=== PATIENT | male | born 1960 ===

== ENCOUNTER 2018-10-10 12:40 | Day surgery (SDC) | payer BC ==
[~2018-10-10] VITALS: Ht 190.5 cm; Wt 90.7 kg
[~2018-10-10 12:40] MED LIST: ESOM20 PO; NAPR220 PO
--- NOTE | 2018-10-10 13:26 | NUR ---
Ambulatory in Day Surgery. History, Chart, Medications and Allergies reviewed before start of procedure. Lungs clear T/O to Auscultation. Patient confirms NPO status and agrees with scheduled surgery. Pre-Op teaching done. Pt verbalizes understanding. Patient States Post-Procedure ride home has been arranged.
--- NOTE | 2018-10-10 13:51 | NUR ---
10/10/18 1351 Joseph Raphael History, Chart, Medications and Allergies reviewed before start of procedure.MONITOR INTACT WITH CONTINUOUS PULSE OXIMETRY AND INTERMITTENT BP.3-LEAD EKG REVIEWED WITH PHYSICIAN PRIOR TO START OF PROCEDURE.O2 VIA N/C INTACT THROUGHOUT SEDATION/PROCEDURE. Patient confirms NPO status and agrees with scheduled surgery.PATIENT DETERMINED TO BE ASA APPROPRIATE FOR PROPOFOL SEDATION PRIOR TO START OF PROCEDURE BY DR. SUTHERLAND.
== END 2018-10-10 22:42 | disposition home or self-care (01) ==
LOC: ORSCMMR 12:40 → ORD 13:30 → ORSCMMR 13:30
PROVIDERS: Student in an Organized Health Care Education/Training Program
PROC: 0DB88ZX Excision of Small Intestine, Via Natural or Artificial Opening Endoscopic, Diagnostic (ICD-10-PCS; principal; 2018-10-10 13:30)
PROC: 0DB58ZX Excision of Esophagus, Via Natural or Artificial Opening Endoscopic, Diagnostic (ICD-10-PCS; principal; 2018-10-10 13:30)
DX: K21.9 Gastro-esophageal reflux disease without esophagitis (principal); R12 Heartburn; K29.80 Duodenitis without bleeding; Z79.899 Other long term (current) drug therapy
CPT/HCPCS: 88305; J7120